=== PATIENT | female | born 1965 | race Two or more races ===

== ENCOUNTER 2021-02-03 06:34 | Day surgery (SDC) | payer OTHER ==
[~2021-02-03 06:34] MED LIST: CALCIUM 600 +1 EAC3 PO; FOSAMAX PO; MAGNESIUM400 MG PO; SINGULAIR10 MG PO; SYMB IH; VITAMIN C100 MG PO
[2021-02-03] MEDS ORDERED: PEPCID AC20 MG PO (10:15)
[2021-02-03] MEDS ORDERED: PERCOCET 5-3251 EACH PO (10:15)
[2021-02-03] MEDS ORDERED: ZOFRAN4 MG PO (10:16)
== END 2021-02-03 13:05 | disposition home or self-care (01) ==
LOC: CIR.AMB 06:34
PROVIDERS: ATTEND Surgery
DX: K80.10 Calculus of gallbladder with chronic cholecystitis without obstruction (principal); Z20.822 Contact with and (suspected) exposure to COVID-19